=== PATIENT | female | born 1985 | race Caucasian/White ===

== ENCOUNTER → 2018-01-14 14:16 | Outpatient (CLI) | payer OTHER, SELFPAY ==
[2018-01-14 18:18] LABS: Chlamydia Trachomatis by PCR Negative (Negative); Neisserai gonorrhoeae by PCR Negative (Negative); Probe Check PASS; Sample Adequacy Control PASS; Specimen Processing Control PASS
[2018-01-17 12:58] LABS: HPV Reflexed? NOT INDICATED
== END ==
PROVIDERS: Visit Provider Obstetrics & Gynecology
DX: Z12.4 Encounter for screening for malignant neoplasm of cervix (principal); Z11.3 Encounter for screening for infections with a predominantly sexual mode of transmission
CPT/HCPCS: 87491; 87591; 88175; G0145

== ENCOUNTER → 2018-01-23 15:10 | Outpatient (CLI) | payer OTHER, SELFPAY ==
[2018-01-23 16:27] LABS: Color, Urine Yellow (Yellow); Glucose, Dipstick Normal (Normal); Ketone-Dipstick Negative (Negative); Leukocyte Esterase-Dipstick Negative /ul (Negative); Nitrite-Dipstick Negative (Negative); Occult Blood-Urine Negative /ul (Negative); Protein-Dipstick Negative (Negative); Urine Bilirubin Dipstick Negative (Negative); Urine Clarity Clear (Clear); Urine Urobilinogen Normal (Normal)
[2018-01-23 17:46] LABS: Absolute Lymphocyte Count 2.34 X10^3/ul (0.83-4.51); Absolute Neutrophil Count 6.7 X10^3/uL (2.0-7.7); Basophil# 0.02 X10^3/uL; Basophil% 0.2 % (0-1); Eosinophil# 0.14 X10^3/uL; Eosinophils% 1.4 % (0-5); Hematocrit 43.5 % (37-47); Hemoglobin 14.5 g/dl (12.0-15.0); Lymphocyte # 2.34 X10^3/ul (4.0); Lymphocyte % 24.1 % (19-41); Mean Corp Hgb Conc 33.3 g/gl (32-36); Mean Corpuscular Hgb 29.6 pg (27.0-32.0); Mean Corpuscular Volume 88.8 fL (81-99); Mean Platelet Vol. 12.2 fl (6.2-12.0); Monocyte# 0.46 X10^3/uL; Monocyte% 4.7 % (0-10); Neutrophil # 6.71 X10^3/uL (2.7-7.7); Neutrophil % 69.4 % (47-70); Platelet Count 184 K/mm3 (150-450); RBC Distribution Width CV 12.3 % (11.6-14.6); RBC Distribution Width SD 39.9 fl (35.1-43.9); White Blood Count 9.7 K/mm3 (4.4-11.0)
[2018-01-23 17:50] LABS: POSITIVE COUNT NO; POSITIVE DIFFERENTIAL NO; POSITIVE MORPHOLOGY NO
[2018-01-23 18:15] LABS: Thyroid Stim Hormone (TSH) 1.06 uIU/mL (0.358-3.74)
[2018-01-23 18:53] LABS: HIV - WCH Non-Reactive (Nonreactive)
[2018-01-25 01:05] LABS: Prenatal RPR NONREACTIVE (NONREACTIVE)
[2018-01-25 12:03] LABS: HEPATITIS B SURFACE AG Negative (Negative); Hep C Antibodies <0.1 s/co ratio (0.0-0.9)
== END ==
PROVIDERS: Visit Provider Obstetrics & Gynecology
DX: Z34.81 Encounter for supervision of other normal pregnancy, first trimester (principal)
CPT/HCPCS: 36415; 81002; 84443; 85025; 86703; 86762; 86803; 87340

== ENCOUNTER → 2018-04-17 15:09 | Outpatient (CLI) | payer OTHER, SELFPAY | PROVIDERS: Visit Provider Obstetrics & Gynecology | DX: N39.0 Urinary tract infection, site not specified (principal) | CPT/HCPCS: 87086 ==

== ENCOUNTER → 2018-06-12 13:34 | Outpatient (CLI) | payer OTHER, SELFPAY ==
[2018-06-12 15:43] LABS: Hematocrit 38.1 % (37-47); Hemoglobin 12.9 g/dl (12.0-15.0); Mean Corp Hgb Conc 33.9 g/gl (32-36); Mean Corpuscular Hgb 30.2 pg (27.0-32.0); Mean Corpuscular Volume 89.2 fL (81-99); Mean Platelet Vol. 11.4 fl (6.2-12.0); Platelet Count 150 K/mm3 (150-450); RBC Distribution Width SD 41.9 fl (35.1-43.9); Red Blood Count 4.27 M/mm3 (4.2-5.4); White Blood Count 9.9 K/mm3 (4.4-11.0)
[2018-06-12 15:57] LABS: Scan Indicated on CBC? Y/N NO
[2018-06-12 16:16] LABS: Glucose Challenge Gest 1H 50g 126 mg/dL (70-140)
== END ==
PROVIDERS: Visit Provider Obstetrics & Gynecology
DX: Z34.83 Encounter for supervision of other normal pregnancy, third trimester (principal)
CPT/HCPCS: 36415; 82950; 85027; 86850

== ENCOUNTER 2018-08-30 10:00 | Inpatient (IN) | payer OTHER, SELFPAY ==
[2018-08-27 13:20] VITALS: BMI 32.8
[2018-08-30] VITALS (19 sets, daily range): BP systolic 108–125; BP diastolic 56–75; PULSE 67–97; RESP 12–18; TEMP 36.2–37.2; O2SAT 95–100; BMI 32.5
[2018-08-30] MEDS: Lactated Ringers 1,000 ML 999 ML IV (10:30)
[2018-08-30 11:15] LABS: Absolute Lymphocyte Count 2.07 X10^3/ul (0.83-4.51); Absolute Neutrophil Count 8.9 X10^3/uL (2.0-7.7); Basophil# 0.02 X10^3/uL; Basophil% 0.2 % (0-1); Eosinophil# 0.29 X10^3/uL; Eosinophils% 2.4 % (0-5); Hematocrit 39.8 % (37-47); Hemoglobin 13.3 g/dl (12.0-15.0); Lymphocyte # 2.07 X10^3/ul (4.0); Lymphocyte % 17.3 % (19-41); Mean Corp Hgb Conc 33.4 g/gl (32-36); Mean Corpuscular Hgb 29.5 pg (27.0-32.0); Mean Corpuscular Volume 88.2 fL (81-99); Monocyte# 0.68 X10^3/uL; Monocyte% 5.7 % (0-10); Neutrophil # 8.87 X10^3/uL (2.7-7.7); Neutrophil % 74.1 % (47-70); POSITIVE COUNT NO; POSITIVE DIFFERENTIAL NO; POSITIVE MORPHOLOGY NO; Platelet Count 140 K/mm3 (150-450); RBC Distribution Width CV 13.2 % (11.6-14.6); RBC Distribution Width SD 42.3 fl (35.1-43.9); Red Blood Count 4.51 M/mm3 (4.2-5.4)
[2018-08-30] MEDS: Lactated Ringers 1,000 ML 150 ML IV (11:30)
[2018-08-30] MEDS: Sodium Citrate/Citric Acid 30 ML UDC PO (11:50)
[2018-08-30] MEDS: Cefazolin 2 GM in 0.9% Normal Saline 100 ML IV (12:00)
[2018-08-30 12:06] LABS: Partial Thromboplast Time 27.5 Seconds (24.1-36.2); Prothrombin Time (Protime)PT. 12.9 SECONDS (11.7-14.9)
[2018-08-30] MEDS: Oxytocin 30 units/NS 500 ml 30 UNITS/500 ML IV.SOLN 167 UNITS IV (12:21)
[2018-08-30] MEDS: Methylergonovine 0.2 MG/ML Ampul IM (12:26)
--- NOTE | 2018-08-30 13:06 | PCM.OPRPT ---
Report of Operation Date of Procedure: 08/30/18 Pre-Operative Diagnosis: Prior Section Post-Operative Diagnosis: Prior Section Surgery/Procedure Performed:: Repeat Low Transverse Cervical Section Description of Surgical Findings:: Viable male with Apgars of 8/9 and an occiput anterior presentation with clear amniotic fluid and normal three-vessel placenta. industrial mechanic: None industrial mechanic: Angela Brady Type of Anesthesia:: Spinal - with Duramorph Anesthesiologist: Anabel Munoz Specimen's removed: [facility]a to [facility] Drains: Michael to Straight Drain Estimated Blood Loss (mL): <500 cc Fluids Replaced: Crystalloid Description of Procedure: Surgeon: Addy Cummings MD, FACOG Indication: This is a 33-year-old who presents for her second at 39+ weeks gestation. care has otherwise been uneventful. The patient has been counseled regarding the risk and indications of this procedure including the possibility of bleeding infection and injury to surrounding structures such as bowel bladder. All questions were answered. Procedure: Patient was taken to the operating room where after spinal anesthesia was placed, the patient was prepped and draped in usual sterile fashion and a Michael catheter was placed. The abdomen was entered through the patient's prior Pfannenstiel incision and peritoneum was entered bluntly. After developing a bladder flap on the lower uterine segment a low transverse incision was made on the uterus and head was easily delivered onto the operative field the nose mouth and oropharynx were bulb suctioned. Subsequently a viable male infant was born with Apgars of 8/9. The was noted to cry move all extremities vigorously on the operative field. The umbilical cord was doubly clamped and ligated and infant handed to the nursery personnel who were present for the delivery. Placenta was delivered and noted to be 3 vessels and normal. arterial blood gases were collected. Uterus was exteriorized and remaining placental tissue was removed. The uterus was then closed in 2 layers first with running locked 0 Vicryl suture followed by a second imbricating layer with 0 Vicryl suture. 0 Vicryl suture was then used in a horizontal mattress interrupted fashion to affect final hemostasis of the uterine incision line. Normal fallopian tubes and ovaries were visualized and the uterus was returned to the pelvis. Hemostasis was noted and rectus abdominis muscles were reapproximated in the midline with interrupted Number 0 Vicryl suture in a horizontal mattress fashion. Fascia was closed with running Number 1 PDS Strata fix suture. Subcutaneous tissue was irrigated with copious amounts of saline solution and then closed with running 3-0 Vicryl suture. Skin was closed with 4-0 monocryl suture in a running subcuticular fashion. Steri strips, telfa, and tape were placed across the incision. The patient tolerated the procedure well and was taken to the recovery room in satisfactory condition. Sponge, needle, and instrument counts were all reportedly correct. EBL was less than 500 cc. Cefotan 2 gms IV was given prior to the procedure. Grafts/Implants Used: None - Complications None - Admit VTE Documentation VTE Present on Admission: Yes VTE Mechan Device Prophylaxis: SCD's VTE Pharm Prophylaxis ordered?: No Reason prophylaxis not ordered:: Treatment Not Indicated
--- NOTE | 2018-08-30 13:13 | DCINST_ITS ---
Discharge Diet: No Restrictions Discharge Activity: May not drive while taking narcotic pain medications., May Shower, May Take a Tub Bath May resume sexual activity in: 4-6 weeks Lifting Restrictions: 20 pounds Additional Activity Instructions:: Nothing in the vagina for 4-6 weeks. You may return to work/school in 6 weeks. Call your doctor if your incision/area has: Continuous Slow Oozing, Sudden Increased Bleeding, Increased Pain/ Swelling, Increased Redness, Foul Smelling Discharge Call your doctor if you observe: Fever of 101 or Higher, Inability to urinate, Inability to have a bowel movement, Using more than one pad per hour Additional Instructions: If you experience any of the following, contact your healthcare provider. * Bleeding that soaks a pad every hour for 2 hours * Unrelieved incision or abdominal pain * Swelling, redness, discharge or bleeding from your incision or episiotomy site * Your incision begins to separate * Problems urinating (including inability to urinate or burning while urinating). * Visual changes * Severe headache * Flu-like symptoms * Pain or redness in one of both of your breasts * Pain, warmth, tenderness or swelling in your legs, especially the calf area * Frequent nausea and vomiting * Symptoms of depression or anxiety If you experience any of the following, call 911 or go to the nearest Emergency Room. * Chest pain * Problems breathing * Seizure activity * Partial or complete paralysis of a body part, slurred speech, weakness or drooping of the face, or a sudden inability to walk or hold your balance Allergies/Adverse Reactions: Allergies amoxicillin Allergy (Verified 08/30/18 10:21) Hives morphine Allergy (Verified 08/30/18 10:21) Hives Medications to take at Discharge Vits [Prenatabs FA] 1 tablet PO DAILY 07/19/15 Mucinex PRN 08/27/18 Tums 1 tablet PO 4X/DAY PRN PRN 08/27/18 Tylenol 500 mg PO TID PRN PRN 08/27/18 Docusate Sodium [Colace] 100 mg PO BID PRN PRN #60 cap 08/30/18 traMADol [Ultram (G)] 50 mg PO Q6H PRN PRN 7 Days #20 tab 08/30/18 The following prescriptions were given: traMADol [Ultram (G)] 50 mg PO Q6H PRN PRN 7 Days #20 tab PRN Reason: Mod-Severe Pain (4-07/03) Docusate Sodium [Colace] 100 mg PO BID PRN PRN #60 cap PRN Reason: Constipation Follow-Up: Call to make an appointment with your doctor for an incision check in 1-2 weeks. You will also need a 6 week post- follow up appointment. Test results from this visit will be discussed in further detail at your follow- up appointment, if applicable. Please Follow Up With: Addy Cummings MD - [phone] When: Call to make an appointment for an incision check in 2 weeks. Primary Care Physician: Jhonathan Montgomery MD [Primary Care Provider] -
[2018-08-30] MEDS: proMETHazine 25 MG/ML Syringe 12.5 MG IV (15:47)
[2018-08-30] MEDS: Lactated Ringers 1,000 ML 100 ML IV (15:48)
[2018-08-30] MEDS: 0.9% Saline Lock 10 ML Syringe IV (15:48)
[2018-08-30] MEDS: Ketorolac 30 MG/ML Syringe IV (18:45)
[2018-08-31] VITALS (10 sets, daily range): BP systolic 92–118; BP diastolic 55–67; PULSE 79–105; RESP 16–18; TEMP 36.5–37.5; O2SAT 97–100
--- NOTE | 2018-08-31 | NURSING ---
Taking over pt care at this time.
[2018-08-31] MEDS: Ketorolac 30 MG/ML Syringe IV ×5 (00:04→23:38)
[2018-08-31] MEDS: Lactated Ringers 1,000 ML 100 ML IV (02:53)
[2018-08-31 04:16] LABS: Hematocrit 32.1 % (37-47); Hemoglobin 10.6 g/dl (12.0-15.0); Mean Corpuscular Hgb 29.9 pg (27.0-32.0); Mean Corpuscular Volume 90.7 fL (81-99); Mean Platelet Vol. 11.9 fl (6.2-12.0); Platelet Count 121 K/mm3 (150-450); RBC Distribution Width CV 13.3 % (11.6-14.6); Red Blood Count 3.54 M/mm3 (4.2-5.4); White Blood Count 11.3 K/mm3 (4.4-11.0)
[2018-08-31 04:17] LABS: Scan Indicated on CBC? Y/N NO
--- NOTE | 2018-08-31 10:12 | PN.OBGYN_ITS ---
Subjective: Pt without complaints. Tolerating diet well. Positive flatus. Minimal vaginal bleeding - Physical Exam Vital Signs Temp Pulse Resp BP Pulse Ox 98.0 F 79 16 96/55 L 98 08/31/18 08:00 08/31/18 08:00 08/31/18 08:00 08/31/18 08:00 08/31/18 06:00 Oxygen Flow Rate (L/min) 97 Oxygen Delivery Method Room Air Weight: 190 lb Body Mass Index (BMI) 32.5 Intake and Output for Last 24 Hours 08/29/18 08/30/18 08/31/18 23:59 23:59 23:59 Intake Total 3200 / 3200 1918 / 1918 Output Total 500 / 500 1400 / 1400 Balance 2700 / 2700 518 / 518 Laboratory Tests Past 24 Hrs 08/30/18 08/30/18 08/30/18 10:40 10:40 10:40 WBC 12.0 H RBC 4.51 Hgb 13.3 Hct 39.8 MCV 88.2 MCH 29.5 MCHC 33.4 RDW 13.2 RDW Differential 42.3 Plt Count 140 L MPV 12.0 Immature Gran % (Auto) 0.300 Neut % (Auto) 74.1 H Lymph % (Auto) 17.3 L Barbour % (Auto) 5.7 Eos % (Auto) 2.4 Baso % (Auto) 0.2 Absolute Neuts (auto) 8.9 H Absolute Lymphs (auto) 2.07 Total Counted Not Reportable PT Cancelled INR Cancelled APTT Cancelled Blood Type O NEGATIVE Antibody Screen NEGATIVE Screen Baby's Blood Type Baby's DIVYA 08/30/18 08/30/18 08/31/18 11:25 15:40 04:05 WBC 11.3 H RBC 3.54 L Hgb 10.6 L Hct 32.1 L MCV 90.7 MCH 29.9 MCHC 33.0 RDW 13.3 RDW Differential 43.0 Plt Count 121 L MPV 11.9 Immature Gran % (Auto) Neut % (Auto) Lymph % (Auto) Barbour % (Auto) Eos % (Auto) Baso % (Auto) Absolute Neuts (auto) Absolute Lymphs (auto) Total Counted PT 12.9 INR 1.0 APTT 27.5 Blood Type Antibody Screen Screen NEGATIVE Baby's Blood Type O POSITIVE Baby's DIVYA NEGATIVE Wound CDI. Good UOP. Hgb OK. Medical Necessity - Tobacco Use Smoking Status: Never smoker Assessment/Plan Doing well. Continue present care.
[2018-08-31] MEDS: 0.9% Saline Lock 10 ML Syringe IV ×2 (11:43→18:41)
[2018-08-31] MEDS: traMADol 50 MG Tablet PO ×2 (14:41→21:09)
[2018-09-01] MEDS: traMADol 50 MG Tablet PO ×2 (06:01→12:38)
[2018-09-01] MEDS: Ibuprofen 600 MG Tablet PO (06:10)
[2018-09-01 08:58] VITALS: BP 103/62; PULSE 87; RESP 16; TEMP 36.9; O2SAT 96
--- NOTE | 2018-09-01 09:32 | PCM.PN.OB ---
Subjective: Patient without complaints. Tolerating diet well. Minimal vaginal bleeding. With pain well controlled with Ultram. Positive flatus. - Physical Exam Vital Signs Temp Pulse Resp BP Pulse Ox 98.4 F 87 16 103/62 96 09/01/18 08:58 09/01/18 08:58 09/01/18 08:58 09/01/18 08:58 09/01/18 08:58 Oxygen Delivery Method Room Air Weight: 190 lb Body Mass Index (BMI) 32.5 Intake and Output for Last 24 Hours 08/30/18 08/31/18 09/01/18 23:59 23:59 23:59 Intake Total 3200 / 3200 1918 / 1918 Output Total 500 / 500 3400 / 3400 Balance 2700 / 2700 -1482 / -1482 Wound is clean, dry, intact. Good urine output. Medical Necessity - Tobacco Use Smoking Status: Never smoker Assessment/Plan Doing well postoperative day #2 status post repeat . Will release to home with routine instructions.
== END 2018-09-01 13:55 | disposition home or self-care (01) | DRG 788 ==
LOC: WP 10:05
PROVIDERS: Admitting Provider Obstetrics & Gynecology; Family Provider Family Medicine; PCP Family Medicine; Referring Provider Obstetrics & Gynecology; Visit Provider Obstetrics & Gynecology
PROC: 10D00Z1 Extraction of Products of Conception, Low, Open Approach (ICD-10-PCS; CPT 59514; principal; 2018-08-30 11:45)
DX: O34.211 Maternal care for low transverse scar from previous cesarean delivery (principal); Z37.0 Single live birth; Z3A.39 39 weeks gestation of pregnancy; Z23 Encounter for immunization; G43.909 Migraine, unspecified, not intractable, without status migrainosus; Z79.899 Other long term (current) drug therapy
CPT/HCPCS: 85025; 85027; 85461; 85610; 85730; 86850; 86900; 90384; 99218; J7120; 90686; A4216; G0378; J2405; J2790

== ENCOUNTER 2018-09-16 07:27 | Emergency (ER) | payer OTHER, SELFPAY ==
[2018-09-16 07:25] VITALS: BMI 32.5
[2018-09-16 07:28] VITALS: BP 124/78; PULSE 84; RESP 18; TEMP 36.6; O2SAT 100; BMI 28.3
[2018-09-16 07:44] VITALS: TEMP 36.6
--- NOTE | 2018-09-16 08:01 | US_ITS ---
STUDY: ULTRASOUND OF THE FEMALE PELVIS - COMPLETE REASON FOR EXAM: Female, 33 years old. Fever and chills. Pain and discharge 17 days status post section. Rule out retained products of conception. LMP: Unknown. TECHNIQUE: Transabdominal and Transvaginal TECHNICAL QUALITY: Adequate. COMPARISON: None. FINDINGS: The uterus is anteverted and is in a midline position. The uterus measures 11.7 x 8.8 x 7.3 cm. Open and fluid distended uterine cervix. The endometrium measures 25 mm in thickness, and is heterogeneous (striated) and fluid distended. There is no demonstrated myometrial mass. I.U.D. - The patient does not have an I.U.D. The right ovary is non-visualized. The left ovary is non-visualized. There is no fluid in the cul-de-sac. The visualized bladder is unremarkable . US/Pelvic (Non ) IMPRESSION: Abnormal heterogeneous fluid distended endometrium consistent with retained products of conception. Electronically Signed: Romario Hirsch MD at 11:03 EST , Service support ,
--- NOTE | 2018-09-16 08:02 | RAD_ITS ---
STUDY: X-RAY - RIGHT FOOT CLINICAL: Female, 33 years old. Pain on the top of the foot TECHNIQUE: 3 view(s) of the foot. COMPARISON: None. FINDINGS: Normal talus, calcaneus, and tarsal bones. There is os perineum. Normal visualized subtalar, talonavicular, calcaneocuboid, tarsal and tarsometatarsal articulations. Normal metatarsi. Normal metatarsophalangeal joint of the great toe. Normal tibial and fibular sesamoid bones. Normal interphalangeal joint of the great toe. Normal phalanges of the great toe. Normal second through fifth metatarsophalangeal joints. Normal interphalangeal joints and phalanges of the lesser toes. The soft tissue structures are unremarkable. There is no demonstrated fracture. RAD/Foot min 3 Views IMPRESSION: Normal x-ray examination of the foot. Electronically Signed: Romario Hirsch MD at 8:59 EST , Service support ,
[2018-09-16 08:29] LABS: Absolute Lymphocyte Count 2.23 X10^3/ul (0.83-4.51); Absolute Neutrophil Count 6.8 X10^3/uL (2.0-7.7); Basophil# 0.04 X10^3/uL; Basophil% 0.4 % (0-1); Eosinophil# 0.81 X10^3/uL; Eosinophils% 7.8 % (0-5); Hematocrit 42.1 % (37-47); Hemoglobin 13.4 g/dl (12.0-15.0); Lymphocyte # 2.23 X10^3/ul (4.0); Lymphocyte % 21.5 % (19-41); Mean Corp Hgb Conc 31.8 g/gl (32-36); Mean Corpuscular Hgb 28.3 pg (27.0-32.0); Mean Platelet Vol. 10.1 fl (6.2-12.0); Monocyte# 0.51 X10^3/uL; Monocyte% 4.9 % (0-10); Neutrophil # 6.77 X10^3/uL (2.7-7.7); Neutrophil % 65.2 % (47-70); POSITIVE COUNT NO; POSITIVE DIFFERENTIAL NO; POSITIVE MORPHOLOGY NO; Platelet Count 202 K/mm3 (150-450); RBC Distribution Width CV 12.8 % (11.6-14.6); RBC Distribution Width SD 41.3 fl (35.1-43.9); Red Blood Count 4.73 M/mm3 (4.2-5.4); White Blood Count 10.4 K/mm3 (4.4-11.0)
[2018-09-16 08:40] LABS: Anion Gap 6 (5-15); BUN 17 mg/dL (7-18); BUN/Creat Ratio 23.2 RATIO (10-20); Calcium,Total 8.3 mg/dL (8.5-10.1); Chloride 108 mmol/L (98-107); Creatinine, Serum 0.73 mg/dL (0.55-1.02); EST Glomerular Filtration Rate 96 mL/min (>60); Est Glom Filt Rate - Afr Amer 117 mL/min (>60); Estimated Creatinine Clearance 93.77 ml/min; Glucose 84 mg/dL (74-106); Sodium Level 141 mmol/L (136-145)
--- NOTE | 2018-09-16 09:03 | ED.DCSUM_ITS ---
- ER Visit Summary Date of Service: 09/16/18 Chief Complaint: Generalized illness and pelvic discharge History of Present Illness: The patient is a 33 F presenting for evaluation secondary to general illness and pelvic discharge. Patient has a history of having a section performed on 08/30. Patient reports that on 09/02 she started to have an onset of generalized illness. This was associated with fevers up to 100.5, generalized myalgias. Patient does endorse that there was a mild cough associated with this. She followed up with her FITNESS AND WELLNESS COORDINATOR she was noted to have some mild dermatitis around her incision, was placed on topicals, and had some improvement of that. However, the patient has had persistent symptoms associated with generalized myalgias, illness. Patient reports that she had a spontaneous onset of the lateral right foot pain not associated with any sort of injury, that was worse with walking and better with wearing a walking boot. Patient states that she recently developed a foul-smelling pelvic discharge. She denies any pelvic or abdominal pain associated with this. Review of systems otherwise negative. Physical Examination: Vital signs within normal limits. Well-nourished female no acute distress. No conjunctival pallor or scleral icterus, moist mucous membranes. Neck supple. Heart regular rate and rhythm no murmurs, lungs sounds clear to auscultation bilaterally. Abdomen soft nontender nondistended normal bowel sounds no masses. Incision appears clean dry and intact. exams that was hospice art therapist showed normal external genitalia no vaginal lesions and a normal cervix there was a foul-smelling brown discharge noted. Remainder of physical otherwise unremarkable. Test Results: CBC and chemistry are unremarkable, pelvic ultrasound shows evidence of possible retained products of conception Emergency Department Course and Treatment: Patient presented secondary to intermittent fevers and foul pelvic discharge. Workup as noted above showed potential retained products of conception. Patient currently does not have a fever, does not have a leukocytosis, and does not have any pelvic pain on palpation I do not believe that this has progressed to endometritis at this point. I had a discussion with Dr. Olmos about this, and she recommended the patient be placed on Flagyl, Augmentin. She recommended that the patient come in first thing to the office on Sunday and be n.p.o. prior to presentation for possible D&C that day. Patient was given signs and symptoms for which to return, she voiced understanding and her own words. Patient was discharged in stable condition. Disposition: Discharge Impression: 1. Retained products of conception This note was generated with [employer] dictation software. It may contain incorrect words, spelling, and punctuation that were not noted in review of the chart prior to signing ED Disposition - Plan for ED Patient: Disposition: Home or Assisted Living Chief Complaint: Complaint Diagnosis: Retained products of conception Instructions: Dilation and Curettage Prescriptions: Cephalexin [Keflex] 500 mg PO Q6 #40 cap Metronidazole [Flagyl] 500 mg PO Q8H #21 tab Referrals: Deborah Olmos MD [STAFF PHYSICIAN] - (10am on Sunday09/18/18)
[2018-09-16 09:18] LABS: Bacteria 0 SEEN /hpf (None Seen); Red Blood Cells-Urine 0 SEEN /hpf (0-5); Squamous Epithelial Cells - UA 0 SEEN /hpf (5-10)
[2018-09-16 09:20] LABS: Color, Urine Yellow (Yellow); Glucose, Dipstick Normal (Normal); Ketone-Dipstick Negative (Negative); Leukocyte Esterase-Dipstick 100 /ul (Negative); Nitrite-Dipstick Negative (Negative); Occult Blood-Urine 250 /ul (Negative); Protein-Dipstick Negative (Negative); Urine Bilirubin Dipstick Negative (Negative); Urine Clarity Clear (Clear); Urine Urobilinogen Normal (Normal)
[2018-09-16 09:25] LABS: Mucous, Urine RARE /hpf (<or=2+); White Blood Cells 5-10 SEEN /hpf (0-5)
[2018-09-16 11:39] VITALS: BP 121/67; PULSE 71; RESP 15; O2SAT 97
== END 2018-09-16 11:52 | disposition home or self-care (01) ==
PROVIDERS: Emergency Provider Emergency Medicine; Family Provider Family Medicine; PCP Family Medicine
DX: O72.2 Delayed and secondary postpartum hemorrhage (principal); R50.9 Fever, unspecified; R05 Cough; M79.10 Myalgia, unspecified site; M25.571 Pain in right ankle and joints of right foot; G43.909 Migraine, unspecified, not intractable, without status migrainosus
CPT/HCPCS: 73630; 76856; 80048; 81001; 85025; 87040; 87070; 87077; 87186; 87205; 87804; 99283; A4216

== ENCOUNTER 2018-09-18 11:33 | Day surgery (SDC) | payer OTHER, SELFPAY ==
--- NOTE | 2018-09-18 11:44 | PCM.HPOB.BLA ---
History and Physical Date of Admission: 09/18/18 Date of : 1985 HISTORY OF PRESENT ILLNESS: On 09/18/2018, Consuelo Calle, a 33 year old female 2 0 0 0 2, presented for: -- GynProblem-Estab Pt -- PT is a 33 yo female, G-2 P-2 here today for a problem visit. PT delivered via C Section on 08/30/2018. PT was seen in ER on Sunday. PT is to see [facility] today for possible surgery for POC. PT is NPO other than sips of water and a few bites of protein bar to take her ABX with. PT states when ibuprofen wears off she starts feeling bad again. dg as above. Presents for ER follow up from 09/16/18 for possible retained products of conception. She has uncomplicated section on 08/30/18. She subsequently had breast engorgement on POD#5 with low grade temperature and despite resolution of engorgement continued to have low grade temperatures and then started with muscle aches for almost 2 weeks. She has been taking Ibuprofen 800mg tid for relief of symptoms, but notes it returns if she does not take it. She presented to ER on 09/16/18 for worsening of ache, malodorous discharge and low grade fever. US there demonstrated heterogenous uterine contents concerning for retained POCs. She was started on Flagyl, Keflex for treatment and told to follow up today. Today she reports Tm 99.6 since starting antibiotics. She continues Ibuprofen. She denies back pain. She feels her lower abdomen is tightened from section. Denies urinary symptoms, diarrhea. + vaginal itching c/w prior yeast infection, she gets these related to antibiotics. Consuelo last ate at 1am. She continues pumping/. [facility] ALLERGIES: Morphine, Hives, Amoxicillin, Hives, Amoxicillin, Hives and/or rash, Morphine and Hives and/or rash MEDICATIONS HISTORY: Current medications prescribed by our practice are: 1. Synalar 0.025 % topical cream, Apply to affected area bid Patient is also takin. Vitamin tablet, one tablet daily 2. Flagyl 375 mg capsule 3. Keflex 500 mg capsule REVIEW OF SYSTEMS: GENERAL - periodic fever SKIN - Denies skin changes EYES - Denies visual changes EARS - Denies difficulty hearing NOSE - Denies nasal congestion or bleeding MOUTH - Denies sore throat or difficulty swallowing NECK - Denies pain or swelling RESPIRATORY - Denies shortness of breath or wheezing CARDIOVASCULAR - Denies palpitations or chest pain GASTROINTESTINAL - Denies nausea, vomiting, diarrhea, constipation GENITOURINARY - Denies dysuria, frequency of urination, incontinence of urine MUSCULOSKELETAL - back pain and muscle aches NEUROLOGICAL - Denies localized numbness or weakness PSYCHIATRIC - Denies depression or anxiety ENDOCRINE - Denies heat or cold intolerance, weight loss or gain HEMATO-IMMUNOLOGIC - Denies excesive bleeding with cuts PAST HISTORY: Breast/Ovarian/Colon Cancers - Denies Infections - Chicken pox Illnesses - none Accidents - no injuries of consequence History of Abnormal PAPS - Denies Hospitalizations - colitis - in [facility] [place] SURGICAL HISTORY: 1. [facility], 2002 2. [facility], 2010 3. 08/30/2018 Addy Cummings M.D. 4. 10/27/2015 Addy Cummings M.D. PAST PREGNANCIES: Total Pregnancies - 2; Full Term Pregnancies - 2; Premature - 0; Abortions, Induced - 0; Abortions, Spontaneous - 0; Ectopics - 0; Multiple Births - 0; Living Children - 2 PHYSICAL EXAMINATION BP- 110/76 Sitting, Right arm, regular cuff Weight- 163.00 lbs Height- 64.50 inch BMI:27.60 CONSTITUTIONAL - NAD, well nourished, and well developed SKIN - No rash, lesions, or ulcers HEENT - normocephalic, atraumatic, sclerae anicteric NECK - No nodes, no nuchal rigidity and thyroid normal size and texture LYMPH NODES - Palpation of lymph nodes in neck and groins within normal limits LUNGS - CTA x2 without wheezes, crackles or rales CARDIAC - Regular rate and rhythm without rubs, murmurs, or gallops BREAST - No tenderness or skin changes or erythema, prior left axillary lymphadenopathy resolved with palpable 1cm node in right axilla ABDOMEN - Without hepatosplenomegaly, distention, masses, rebound, or guarding; normal bowel sounds; no hernias; incision with 2mm opening with serous drainage without erythma, purulence or tenderness EXTREMITIES - No edema or calf tenderness NEUROLOGICAL - normal gait, normal balance, normal motor PSYCHIATRIC - A and O to time, place, person, mood and affect EXTERNAL GENITALIA - normal appearing external genitalia UTERUS - nontender, approximately 10w size ADNEXAE - nontender, no palpable masses CERVIX - no cervical motion tenderness, not dilated ASSESSMENT: 1. Other Abnormal Products Of Conception PLAN BY DIAGNOSIS: 1. Other Abnormal Products Of Conception Exam overall wnl apart from incisional separation US images reviewed Advised suction dilation and curettage to evacuate hematoma vs. retained POCs - r/b/i/a reviewed, discussed misoprostol as an alternative. Following discussion, pt agrees to proceed - consents signed Reviewed anticipated hospital course and recovery Prior CBC from 09/16/18 - needs T Pt and spouse given opportunity to ask questions and questions answered to their satisfaction. May continue , reviewed monitoring infant for drowsiness Blood transfusion acceptable
--- NOTE | 2018-09-18 11:48 | HP.PCM_ITS ---
History and Physical Date of Admission: 09/18/18 Date of : 1985 HISTORY OF PRESENT ILLNESS: On 09/18/2018, Consuelo Calle, a 33 year old female 2 0 0 0 2, presented for: -- GynProblem-Estab Pt -- PT is a 33 yo female, G-2 P-2 here today for a problem visit. PT delivered via C Section on 08/30/2018. PT was seen in ER on Sunday. PT is to see [facility] today for possible surgery for POC. PT is NPO other than sips of water and a few bites of protein bar to take her ABX with. PT states when ibuprofen wears off she s tarts feeling bad again. dg as above. Presents for ER follow up from 09/16/18 for possible retained products of conception. She has uncomplicated section on 08/30/18. She subsequently had breast engorgement on POD#5 with low grade temperature and despite resolution of engorgement continued to have low grade temperatures and then started with muscle aches for almost 2 weeks. She has been taking Ibuprofen 800mg tid for relief of symptoms, but notes it returns if she does not take it. She presented to ER on 09/16/18 for worsening of ache, malodorous discharge and low grade fever. US there demonstrated heterogenous uterine contents concerning for retained POCs. She was started on Flagyl, Keflex for treatment and told to follow up today. Today she reports Tm 99.6 since starting antibiotics. She continues Ibuprofen. She denies back pain. She feels her lower abdomen is tightened from section. Denies urinary symptoms, diarrhea. + vaginal itching c/w prior yeast infection, she gets these related to antibiotics. Consuelo last ate at 1am. She continues pumping/. [facility] ALLERGIES: Morphine, Hives, Amoxicillin, Hives, Amoxicillin, Hives and/or rash, Morphine and Hives and/or rash MEDICATIONS HISTORY: Current medications prescribed by our practice are: 1. Synalar 0.025 % topical cream, Apply to affected area bid Patient is also takin. Vitamin tablet, one tablet daily 2. Flagyl 375 mg capsule 3. Keflex 500 mg capsule REVIEW OF SYSTEMS: GENERAL - periodic fever SKIN - Denies skin changes EYES - Denies visual changes EARS - Denies difficulty hearing NOSE - Denies nasal congestion or bleeding MOUTH - Denies sore throat or difficulty swallowing NECK - Denies pain or swelling RESPIRATORY - Denies shortness of breath or wheezing CARDIOVASCULAR - Denies palpitations or chest pain GASTROINTESTINAL - Denies nausea, vomiting, diarrhea, constipation GENITOURINARY - Denies dysuria, frequency of urination, incontinence of urine MUSCULOSKELETAL - back pain and muscle aches NEUROLOGICAL - Denies localized numbness or weakness PSYCHIATRIC - Denies depression or anxiety ENDOCRINE - Denies heat or cold intolerance, weight loss or gain HEMATO-IMMUNOLOGIC - Denies excesive bleeding with cuts PAST HISTORY: Breast/Ovarian/Colon Cancers - Denies Infections - Chicken pox Illnesses - none Accidents - no injuries of consequence History of Abnormal PAPS - Denies Hospitalizations - colitis - in [facility] SURGICAL HISTORY: 1. T and A, 2002 2. [place] [facility], 2010 3. 08/30/2018 Addy Cummings M.D. 4. 10/27/2015 Addy Cummings M.D. PAST PREGNANCIES: Total Pregnancies - 2; Full Term Pregnancies - 2; Premature - 0; Abortions, Induced - 0; Abortions, Spontaneous - 0; Ectopics - 0; Multiple Births - 0; Living Children - 2 PHYSICAL EXAMINATION BP- 110/76 Sitting, Right arm, regular cuff Weight- 163.00 lbs Height- 64.50 inch BMI:27.60 CONSTITUTIONAL - NAD, well nourished, and well developed SKIN - No rash, lesions, or ulcers HEENT - normocephalic, atraumatic, sclerae anicteric NECK - No nodes, no nuchal rigidity and thyroid normal size and texture LYMPH NODES - Palpation of lymph nodes in neck and groins within normal limits LUNGS - CTA x2 without wheezes, crackles or rales CARDIAC - Regular rate and rhythm without rubs, murmurs, or gallops BREAST - No tenderness or skin changes or erythema, prior left axillary lymphadenopathy resolved with palpable 1cm node in right axilla ABDOMEN - Without hepatosplenomegaly, distention, masses, rebound, or guarding; normal bowel sounds; no hernias; incision with 2mm opening with serous drainage without erythma, purulence or tenderness EXTREMITIES - No edema or calf tenderness NEUROLOGICAL - normal gait, normal balance, normal motor PSYCHIATRIC - A and O to time, place, person, mood and affect EXTERNAL GENITALIA - normal appearing external genitalia UTERUS - nontender, approximately 10w size ADNEXAE - nontender, no palpable masses CERVIX - no cervical motion tenderness, not dilated ASSESSMENT: 1. Other Abnormal Products Of Conception PLAN BY DIAGNOSIS: 1. Other Abnormal Products Of Conception Exam overall wnl apart from incisional separation US images reviewed Advised suction dilation and curettage to evacuate hematoma vs. retained POCs - r/b/i/a reviewed, discussed misoprostol as an alternative. Following discussion, pt agrees to proceed - consents signed Reviewed anticipated hospital course and recovery Prior CBC from 09/16/18 - needs T Pt and spouse given opportunity to ask questions and questions answered to their satisfaction. May continue , reviewed monitoring infant for drowsiness Blood transfusion acceptable
[2018-09-18 11:58] VITALS: BP 110/82; PULSE 70; RESP 16; TEMP 37.3; O2SAT 100; BMI 28.0
--- NOTE | 2018-09-18 12:00 | POC_PTH ---
PATIENT: SANDRA DURAN LOC: [facility] U#:[id number] AGE/SX: 33/F ROOM: RE09/18/[address]: Dr. Deborah Mo MD : 1985 BED: DIS: 09/18/2018 SPEC #: [id number] RECD: 09/18/18 16:18 STATUS: AMY SHELIA #: [id number] TOYA: 09/18/18 12:[address]: Deborah White DEPT: SURGICAL PATHOLOGY RECD BY: Urban Cohn ENTERED: 09/19/18 11:00 SP TYPE: PROD CONC OTHR DR: Dr. Jhonathan Montgomery MD Tissues: Product of conception, NOS Procedures: Surgery Specimen Level IV HEADER OPERATION: Dilation and curettage, suction PRE-OP DIAGNOSIS: Retained products of conception TISSUE SUBMITTED: Retained products of conception MICROSCOPIC DIAGNOSIS Retained products of conception, curettage: Chorionic villi, decidualized stroma and trophoblastic cells with autolytic changes. See comment. AM:karina 09/20/18 COMMENT The specimen is consistent with retained products of conception. Clinical correlation is suggested. MICROSCOPIC DESCRIPTION Slides are reviewed. GROSS DESCRIPTION Received in fixative is one container labeled with the patient's name and designated retained products of conception. The specimen consists of multiple irregular fragments of hemorrhagic red-kunz soft tissue that in aggregate measure 8 x 7 x 1 cm. parts are not grossly recognized. Tongue And Groove Machine Setter portions are submitted in two cassettes. / AM:karina 09/19/18 TC:5 CPT: 48694
[2018-09-18 12:22] LABS: Internal QC Validated? YES +Cl - CLEAR BKGD; Pregnancy, Urine Negative Negative
--- NOTE | 2018-09-18 13:09 | DCINST_ITS ---
Discharge Diet: No Restrictions Discharge Activity: Return to Normal Activity, May not drive while taking narcotic pain medications., May Shower, - - No tub bath, Do not put anything in the vagina, No driving for 24 hours, do not operate heavy machinery for 24 hours May resume sexual activity in: - - 2-4 weeks Call your doctor if you observe: Fever of 101 or Higher, Inability to urinate, Inability to have a bowel movement, Using more than one pad per hour, Shortness of breath, Chest pain, Uncontrolled pain Allergies/Adverse Reactions: Allergies amoxicillin Allergy (Verified 09/16/18 07:30) Hives morphine Allergy (Verified 09/16/18 07:30) Hives Medications to take at Discharge Vits [Prenatabs FA] 1 tablet PO DAILY 07/19/15 Mucinex PRN 08/27/18 Tums 1 tablet PO 4X/DAY PRN PRN 08/27/18 Tylenol 500 mg PO TID PRN PRN 08/27/18 Docusate Sodium [Colace] 100 mg PO BID PRN PRN #60 cap 08/30/18 Cephalexin [Keflex] 500 mg PO Q6 #40 cap 09/16/18 Metronidazole [Flagyl] 500 mg PO Q8H #21 tab 09/16/18 Ibuprofen 400 mg PO Q6H PRN 09/18/18 Primary Care Physician: Jhonathan Montgomery MD [Primary Care Provider] - Test Results: Test results from this visit will be discussed in further detail at your follow- up appointment, if applicable. Please Follow Up With: Addy Cummings MD When: 2-4 weeks
--- NOTE | 2018-09-18 13:10 | PCM.OPRPT ---
Problem List (1) Retained products of conception after delivery without hemorrhage Status: Acute Report of Operation Date of Procedure: 09/18/18 Pre-Operative Diagnosis: Retained products of conception after delivery Post-Operative Diagnosis: Retained products of conception after delivery Surgery/Procedure Performed:: Suction dilation and curettage Description of Surgical Findings:: Retained products of conception Type of Anesthesia:: Local MAC Anesthesiologist: Jhonathan Hsieh Specimen's removed: products of conception and clot Estimated Blood Loss (mL): 25ml Fluids Replaced: 1100 ml Description of Procedure: Indications: Ms. Calle is a 33-year-old para 3003 approximately 2 weeks status post a repeat section with retained products of conception, cannot rule out hematometra. She was advised to proceed with suction dilatation and curettage. Risks, benefits, indications, and alternatives were reviewed at length. Consents were signed. The patient desired to proceed. Procedure: The patient was taken to the operating room and sinus performed. She is placed on dorsal supine position and induced under MAC. She was then repositioned to dorsal lithotomy. The perineum was prepped and draped in sterile fashion. She is placed into high lithotomy. A bivalve speculum was placed into the vagina and cervix visualized and grasped the anterior cervical lip using a single-tooth tenaculum. Total of 20 cc of 1% lidocaine without epinephrine was placed for paracervical block. The cervix was subsequently dilated and suction curettage performed using a 10 mm curved curette. Suction curettage was alternated with sharp curettage and there was retrieval products of conception as well as hematoma. The procedure was complete the tenaculum was removed from the cervix and there was excellent hemostasis. The macula was removed from the vagina and the patient was placed into dorsal supine position, awakened and transferred to the recovery room without complication. Sponge counts were correct x2. The patient tolerated the procedure well. - Complications None - Admit VTE Documentation VTE Present on Admission: No VTE Mechan Device Prophylaxis: SCD's VTE Pharm Prophylaxis ordered?: No
[2018-09-18 13:15] VITALS: BP 103/67; BP 110/82; PULSE 71; RESP 16; TEMP 37; O2SAT 99
[2018-09-18 13:20] VITALS: BP 101/76; BP 110/82; PULSE 70; RESP 16; O2SAT 100
[2018-09-18 13:25] VITALS: BP 110/82; BP 116/81; PULSE 70; RESP 16; O2SAT 99
[2018-09-18 13:33] VITALS: BP 104/75; BP 110/82; PULSE 68; RESP 16; TEMP 36.6; O2SAT 100
== END 2018-09-18 14:33 | disposition home or self-care (01) ==
LOC: SDC 11:34 → AC 11:35
PROVIDERS: Family Provider Family Medicine; PCP Family Medicine; Referring Provider Obstetrics & Gynecology; Visit Provider Obstetrics & Gynecology
PROC: (CPT 59160; principal; 2018-09-18 11:45)
DX: O73.1 Retained portions of placenta and membranes, without hemorrhage (principal); Z3A.00 Weeks of gestation of pregnancy not specified
CPT/HCPCS: 59160; 81025; 86850; 86870; 86900; 88305; J7120

== ENCOUNTER → 2019-05-16 | Outpatient (CLI) | payer OTHER, SELFPAY | END | disposition home or self-care (01) | LOC: MFPLAB 12:11 | PROVIDERS: Family Provider Family Medicine; PCP Family Medicine; Referring Provider Family Medicine; Visit Provider Family Medicine | DX: K52.9 Noninfective gastroenteritis and colitis, unspecified (principal) | CPT/HCPCS: 87177; 87209; 87506 ==

== ENCOUNTER → 2020-04-08 | Outpatient (CLI) | payer OTHER, SELFPAY ==
[2020-04-14 19:59] LABS: HPV Reflexed? NOT INDICATED
== END | disposition home or self-care (01) ==
LOC: LABSPEC 04-09 09:39
PROVIDERS: PCP Family Medicine; Visit Provider Obstetrics & Gynecology
DX: Z12.4 Encounter for screening for malignant neoplasm of cervix (principal)
CPT/HCPCS: 88175; G0145

== ENCOUNTER → 2020-09-10 11:14 | Outpatient (CLI) | payer OTHER, SELFPAY ==
[2020-08-10 08:03] VITALS: BMI 27.3
--- NOTE | 2020-09-10 11:25 | RAD_ITS ---
STUDY: X-RAY - ACUTE ABDOMINAL SERIES REASON FOR EXAM: Female, 35 years old. Abdominal pain, diarrhea, nausea and vomiting since 2 am. hx of 2 c-sections. pt states that she also has a hiatal hernia. TECHNIQUE: Single view of the chest. Supine, and erect view(s) of the abdomen were obtained. COMPARISON: None. FINDINGS: The lungs are clear and expanded. Normal size heart. Normal mediastinum and annetta. Normal visualized pulmonary arteries. Normal visualized aortic arch and descending thoracic aorta. There is a non-specific bowel gas pattern. The soft tissue structures of the abdomen and pelvis are unremarkable. Normal visualized osseous structures. RAD/Acute Abdomen Inc Chest IMPRESSION: Normal x-ray examination of the chest, abdomen, and pelvis. Electronically Signed: Clifton Mazariegos, at 12:45 EST , Service support ,
[2020-09-10 12:12] LABS: Absolute Lymphocyte Count 1.41 X10^3/uL (0.83-4.51); Absolute Neutrophil Count 10.9 X10^3/uL (2.0-7.7); Basophil# 0.04 X10^3/uL; Basophil% 0.3 % (0-1); Eosinophil# 0.01 X10^3/uL; Eosinophils% 0.1 % (0-5); Hematocrit 46.1 % (37-47); Hemoglobin 15.4 g/dL (12.0-15.0); Lymphocyte # 1.41 X10^3/ul (4.0); Lymphocyte % 11.1 % (19-41); Mean Corp Hgb Conc 33.4 g/dL (32-36); Mean Corpuscular Hgb 29.3 pg (27.0-32.0); Mean Corpuscular Volume 87.8 fL (81-99); Mean Platelet Vol. 12.1 fl (6.2-12.0); Monocyte# 0.28 X10^3/uL; Monocyte% 2.2 % (0-10); NRBC Flagged by Analyzer 0 % (0-5); Neutrophil # 10.86 X10^3/uL (2.7-7.7); Neutrophil % 85.9 % (47-70); Platelet Count 237 K/mm3 (150-450); RBC Distribution Width CV 11.9 % (11.6-14.6); RBC Distribution Width SD 38.4 fl (35.1-43.9); Red Blood Count 5.25 M/mm3 (4.2-5.4); White Blood Count 12.7 K/mm3 (4.4-11.0)
[2020-09-10 12:34] LABS: AST(SGOT) 13 U/L (15-37); Alanine Aminotransfer ALT/SGPT 19 U/L (13-56); Albumin, Serum 3.9 g/dL (3.2-5.0); Alkaline Phosphatase 84 U/L (45-117); Anion Gap 6 (5-15); BUN 13 mg/dL (7-18); BUN/Creat Ratio 19.6 RATIO (10-20); Chloride 108 mmol/L (98-107); Creatinine, Serum 0.66 mg/dL (0.55-1.02); EST Glomerular Filtration Rate 107 mL/min (>60); Est Glom Filt Rate - Afr Amer 129 mL/min (>60); Globulin 3.8 g/dL (2.2-4.2); Glucose 99 mg/dL (74-106); Potassium 3.9 mmol/L (3.5-5.1); Protein, Total 7.7 g/dL (6.4-8.2); Sodium Level 138 mmol/L (136-145)
[2020-09-12 20:07] LABS: Beef <0.10 kU/L (Class 0); Corn <0.10 kU/L (Class 0); Egg, Whole <0.10 kU/L (Class 0); Milk (Cow) <0.10 kU/L (Class 0); Peanut <0.10 kU/L (Class 0); Pork <0.10 kU/L (Class 0); Soybean <0.10 kU/L (Class 0); Wheat <0.10 kU/L (Class 0)
[2020-09-13 16:08] LABS: Endomysial Antibody IgA Negative (Negative)
[2020-09-13 17:17] LABS: CRP 6.77 mg/L (0.0-3.0)
[2020-09-13 20:55] LABS: Deamidated Gliadin IgA 9 units (0-19); Deamidated Gliadin IgG 3 units (0-19); Immunoglobulin A 208 mg/dL (87-352); t-Transglutaminase IgA <2 U/mL (0-3)
[2020-09-13 21:01] LABS: Chocolate <0.10 kU/L (Class 0)
== END ==
PROVIDERS: PCP Family Medicine; Referring Provider Family Medicine; Visit Provider Family Medicine
DX: R10.9 Unspecified abdominal pain (principal); R19.7 Diarrhea, unspecified
CPT/HCPCS: 36415; 74022; 80053; 82784; 83516; 85025; 86003; 86005; 86140; 86255

== ENCOUNTER → 2021-09-24 09:45 | Outpatient (CLI) | payer BC, SELFPAY ==
--- NOTE | 2021-09-24 10:05 | RAD_ITS ---
STUDY: X-RAY CHEST REASON FOR EXAM: Female, 36 years old. SOB, CHEST TIGHTNESS TECHNIQUE: PA and lateral views of the chest. COMPARISON: 09/10/2020 FINDINGS: The lungs are clear and expanded. There is no demonstrated pleural abnormality. Normal size heart. Normal mediastinum and annetta. Normal visualized pulmonary arteries. Normal visualized aortic arch and descending thoracic aorta. Normal visualized thoracic spine. Normal visualized ribs, clavicles, and shoulders. There is no demonstrated abnormality of the visualized soft tissue structures of the upper abdomen. RAD/Chest PA and Lateral IMPRESSION: Normal x-ray examination of the chest. Electronically Signed: Urban Miller MD at 10:30 EST Tel , Service support ,
== END ==
PROVIDERS: PCP Family Medicine
DX: R06.02 Shortness of breath (principal); R07.89 Other chest pain
CPT/HCPCS: 71046

== ENCOUNTER 2021-10-25 09:09 | Outpatient (CLI) | payer BC, SELFPAY ==
[2021-10-28 14:09] LABS: HPV APTIMA, High Risk Negative (Negative)
== END 2021-10-25 23:59 | disposition short-term general hospital (02) ==
LOC: LABSPEC 10-26 09:11
PROVIDERS: PCP Family Medicine; Visit Provider Nurse Practitioner Women's Health
DX: Z12.4 Encounter for screening for malignant neoplasm of cervix (principal)
CPT/HCPCS: 87624; 88175; G0145

== ENCOUNTER → 2022-07-19 | Outpatient (CLI) | payer BC, SELFPAY ==
--- NOTE | 2022-07-19 12:50 | RAD_ITS ---
EXAM: XR CHEST, 2 VIEWS CLINICAL INDICATION: atypical chest pain TECHNIQUE: Frontal and lateral views of the chest. This report was created using [employer] report generation technology. COMPARISON: XR Chest dated september 24 2021 FINDINGS: LUNGS AND PLEURAL SPACES: Normal. No consolidation or edema. No pneumothorax. No effusion. HEART: Normal heart size. MEDIASTINUM: No mediastinal or hilar mass. BONES/JOINTS: No acute abnormality. SOFT TISSUES: Normal. RAD/Chest PA and Lateral IMPRESSION: No acute cardiopulmonary abnormality. No interval change. Electronically Signed: Braden Geller MD at 14:55 EDT ,
== END | disposition home or self-care (01) ==
LOC: MTRAD 14:14
PROVIDERS: PCP Family Medicine; Referring Provider Family Medicine; Visit Provider Family Medicine
DX: R07.89 Other chest pain (principal)
CPT/HCPCS: 71046

== ENCOUNTER → 2022-10-24 | Outpatient (CLI) | payer BC, SELFPAY ==
[2022-10-26 22:06] LABS: Chlamydia By Nucleic Acid AMP Negative (Negative)
[2022-10-26 22:37] LABS: Gonococcus By Nucleic Acid AMP Negative (Negative)
== END | disposition home or self-care (01) ==
LOC: LABSPEC 16:39
PROVIDERS: PCP Family Medicine; Visit Provider Nurse Practitioner Women's Health
DX: N89.8 Other specified noninflammatory disorders of vagina (principal)
CPT/HCPCS: 87070; 87205; 87491; 87591

== ENCOUNTER → 2023-07-23 | Outpatient (CLI) | payer BC, SELFPAY ==
[2023-07-23 10:00] LABS: Hematocrit 42.8 % (37-47); Hemoglobin 13.8 g/dL (12.0-15.0); Mean Corp Hgb Conc 32.2 g/dL (32-36); Mean Corpuscular Hgb 29.7 pg (27.0-32.0); Mean Platelet Vol. 12.6 fl (6.2-12.0); Platelet Count 152 K/mm3 (150-450); RBC Distribution Width SD 40.5 fl (35.1-43.9); Red Blood Count 4.65 M/mm3 (4.2-5.4); White Blood Count 5.9 K/mm3 (4.4-11.0)
[2023-07-23 10:22] LABS: AST(SGOT) 6 U/L (15-37); Alanine Aminotransfer ALT/SGPT 19 U/L (13-56); Albumin, Serum 3.5 g/dL (3.2-5.0); Alkaline Phosphatase 59 U/L (45-117); Anion Gap 2 (5-15); BUN 13 mg/dL (7-18); BUN/Creat Ratio 19.8 RATIO (10-20); Calcium,Total 8.3 mg/dL (8.5-10.1); Chloride 111 mmol/L (98-107); Cholesterol 148 mg/dL (200); Creatinine, Serum 0.66 mg/dL (0.55-1.02); EST Glomerular Filtration Rate 106 mL/min (>60); Est Glom Filt Rate - Afr Amer 129 mL/min (>60); Free T3 2.5 pg/mL (2.18-3.98); Globulin 3.5 g/dL (2.2-4.2); Glucose 86 mg/dL (74-106); High Density Lipoprotein 53 mg/dL; Potassium 3.9 mmol/L (3.5-5.1); Sodium Level 137 mmol/L (136-145); T4 Free Direct 0.79 ng/dL (0.76-1.46); Thyroid Stim Hormone (TSH) 1.41 uIU/mL (0.358-3.74); Triglycerides 54 mg/dL; Very Low Density Lipoprotein 11 mg/dL (5-40)
== END | disposition home or self-care (01) ==
LOC: MFPLAB 08:44
PROVIDERS: Nurse Practitioner Family; PCP Family Medicine; Visit Provider Family Medicine
DX: E04.9 Nontoxic goiter, unspecified (principal); Z13.1 Encounter for screening for diabetes mellitus; Z13.220 Encounter for screening for lipoid disorders
CPT/HCPCS: 36415; 80053; 80061; 84439; 84443; 84481; 85027

== ENCOUNTER 2023-09-09 18:48 | Emergency (ER) | payer BC, SELFPAY ==
[2023-09-09 18:48] VITALS: BP 123/103; PULSE 68; RESP 16; TEMP 36.7; O2SAT 98; BMI 21.5
[2023-09-09 20:00] LABS: Bacteria 0 SEEN /hpf (None Seen); Mucous, Urine 0 SEEN /hpf (<or=2+); Red Blood Cells-Urine 0 SEEN /hpf (0-5); Squamous Epithelial Cells - UA 0 SEEN /hpf (5-10); White Blood Cells 0 SEEN /hpf (0-5)
[2023-09-09 20:02] LABS: Color, Urine Yellow (Yellow); Glucose, Dipstick Normal (Normal); Ketone-Dipstick 15 mg/dl (Negative); Leukocyte Esterase-Dipstick Negative /ul (Negative); Nitrite-Dipstick Negative (Negative); Occult Blood-Urine Negative /ul (Negative); Protein-Dipstick Negative (Negative); Urine Bilirubin Dipstick Negative (Negative); Urine Clarity Sl. Cloudy (Clear); Urine Urobilinogen Normal (Normal)
[2023-09-09 20:39] LABS: Absolute Lymphocyte Count 1.14 X10^3/uL (0.83-4.51); Absolute Neutrophil Count 7.7 X10^3/uL (2.0-7.7); Basophil# 0.02 X10^3/uL; Basophil% 0.2 % (0-1); Hematocrit 45.5 % (37-47); Lymphocyte # 1.14 X10^3/ul (0.83-4.51); Lymphocyte % 12.7 % (19-41); Mean Corpuscular Hgb 29.5 pg (27.0-32.0); Mean Corpuscular Volume 89.6 fL (81-99); Mean Platelet Vol. 11.7 fl (6.2-12.0); Monocyte% 1.1 % (0-10); NRBC Flagged by Analyzer 0 % (0-5); Neutrophil # 7.66 X10^3/uL (2.7-7.7); Neutrophil % 85.6 % (47-70); Platelet Count 185 K/mm3 (150-450); RBC Distribution Width SD 39.5 fl (35.1-43.9); Red Blood Count 5.08 M/mm3 (4.2-5.4)
[2023-09-09 20:50] LABS: Internal QC Validated? YES +Cl - CLEAR BKGD; Pregnancy, Serum, hCG Quali. NEGATIVE Negative
[2023-09-09 21:06] LABS: ALB/GLOB Ratio 1.1 RATIO (0.9-2.4); AST(SGOT) 10 U/L (15-37); Alanine Aminotransfer ALT/SGPT 18 U/L (13-56); Albumin, Serum 3.9 g/dL (3.2-5.0); Alkaline Phosphatase 62 U/L (45-117); Anion Gap 6 (5-15); BUN 12 mg/dL (7-18); BUN/Creat Ratio 13.8 RATIO (10-20); Calcium,Total 9.5 mg/dL (8.5-10.1); Chloride 104 mmol/L (98-107); Creatinine, Serum 0.87 mg/dL (0.55-1.02); EST Glomerular Filtration Rate 77 mL/min (>60); Est Glom Filt Rate - Afr Amer 93 mL/min (>60); Estimated Creatinine Clearance 74.97 ml/min; Globulin 3.7 g/dL (2.2-4.2); Glucose 112 mg/dL (74-106); Potassium 4.1 mmol/L (3.5-5.1); Protein, Total 7.6 g/dL (6.4-8.2); Sodium Level 138 mmol/L (136-145)
[2023-09-09] MEDS: Mag Hydrox/Al Hydrox/Simeth 30 ML UDC PO (22:23)
[2023-09-09] MEDS: Ondansetron 4 MG/2 ML Vial IV (22:24)
[2023-09-09] MEDS: Ketorolac 15 MG/ML Vial IV (22:25)
[2023-09-09] MEDS: Dicyclomine 20 MG/2 ML Vial IM (22:27)
--- NOTE | 2023-09-09 23:53 | ED.VIS.GI ---
HPI HPI - GI History of Present Illness Chief Complaint: Abd Pain Narrative Narrative: 38-year-old female presenting with abdominal pain. She describes it as cramping and aching. She points to her epigastrium and her mid umbilical region. Patient states this started about 24 hours ago. Patient reports she does have lactose intolerance and did eat some black eyes and is concerned this may have caused her symptoms but she is also on prednisone that was prescribed by the urgent care for an extended cough that she had for 2 weeks. Patient denies any history of asthma or wheezing. No fevers or chills. Patient does have nausea. She states she has not had significant diarrhea but has had some between bowel movements. Patient does report a history of IBS as well. [facility] Medical History IBS (irritable bowel syndrome) Migraines Home Medications [id number]-[id number] 250 mg-250 mg-65 mg tablet (Excedrin Extra Strength) 1 tab PO ONCE 05/18/20 [History Last Taken Unknown] multivitamin 1 tab PO DAILY 05/18/20 [History Last Taken Unknown] Saccharomyces boulardii 250 mg capsule (Daily Probiotic (S. boulardii)) 250 mg PO BID 10/25/21 [History Last Taken Unknown] dicyclomine 20 mg tablet 20 mg PO TID PRN abdominal pain #20 tabs 09/09/23 [Rx Last Taken Unknown] ondansetron 4 mg disintegrating tablet 4 mg PO Q8H PRN PRN Nausea #14 tabs 09/09/23 [Rx Last Taken Unknown] Allergy/AdvReac Type Severity Reaction Status Date / Time amoxicillin Allergy Hives Verified 09/09/23 18:49 morphine Allergy Hives Verified 09/09/23 18:49 Family History Grandmother Hypertension Grandfather Hypertension Heart disease Diabetes Kidney disease Surgical History S/P S/P tonsillectomy and adenoidectomy S/P wisdom tooth extraction Social History household members: family housing: house Smoking Status: Never smoker alcohol intake: current details: occasionally substance use type: does not use caffeine: Yes what type of physical activity do you participate in: walking, aerobics and weight training frequency: 5-6 times per week seatbelt use: always do you feel safe at home: Yes additional social history: ROS ROS ED Constitutional Constitutional ED: Denies chills, fever(s) or sweats Eyes Eyes: Denies blurry vision or change in vision ENT ENT ED: Denies ear pain or sore throat Cardiovascular Cardiovascular: Denies chest pain, palpitations or racing heartbeat Respiratory/Chest Respiratory/Chest: Denies cough, dyspnea or sputum Gastrointestinal Gastrointestinal: Reports abdominal pain, diarrhea and nausea; Denies constipation or vomiting Genitourinary Genitourinary ED: Denies dysuria, hematuria or urinary frequency Musculoskeletal Musculoskeletal: Denies arthralgias, myalgias or neck pain Integumentary Denies abscess, Abrasions or rash Neurologic Neurologic: Denies headache(s), paresthesias or weakness Psychiatric Psychiatric: Denies anxiety, depression, suicidal ideation or suicidal thoughts Endocrine Endocrinology: Denies polydipsia or polyuria EXAM Physical Exam Const Vital Signs: 09/09/23 18:48 Temperature 98.1 F Temperature Source Temporal Pulse Rate 68 Respiratory Rate 16 Blood Pressure 123/103 H Blood Pressure Mean 109 Pulse Ox 98 Oxygen Delivery Method Room Air Negative for well nourished General Appearance ED: NAD; Negative for pallor HEENT Reports moist mucous membranes normocephalic and atraumatic Eyes PERRL and EOMs intact bilaterally Resp normal respiratory effort Effort and Inspection: Negative for respiratory distress Cardio regular rate and regular rhythm GI GI Narrative: Mild epigastric tenderness. No rebound or guarding. No Alcocer sign or McBurney point tenderness. No peritoneal signs. Back/Spine no CVA tenderness Neuro CN's II-XII intact bilaterally Sensorium / Orientation: alert Motor Exam: strength 5/5 throughout Psych mental status grossly normal Skin no wounds General Skin Exam: Negative for jaundice or pallor MDM MDM MDM Narrative Medical decision making narrative: 38-year-old female presenting with abdominal pain. It is cramping in nature. Differential includes gastritis, IBS flare. Patient's abdominal exam is benign. CBC and CMP were obtained to assess white blood cell count, hemoglobin, platelets, renal function, electrolytes, liver function all this is normal. hCG negative. Urinalysis negative. Patient treated with Bentyl, Zofran, Toradol and on reevaluation her pain improved significantly and she feels better. Given this I do not believe she needs any imaging or further blood work. She is given a prescription for Bentyl and Zofran for home. She is counseled take Tylenol and ibuprofen. She was given a list of foods to avoid. Impression: 1. Abdominal pain 2. Nausea 3. History of IBS Lab Data Attestation: I reviewed the patient's lab results. Labs: Laboratory Results - last 24 hr 09/09/23 09/09/23 19:54 20:29 WBC 9.0 RBC 5.08 Hgb 15.0 Hct 45.5 MCV 89.6 MCH 29.5 MCHC 33.0 RDW Std Deviation 39.5 RDW Coeff of Barrett 12.0 Plt Count 185 MPV 11.7 Immature Gran % (Auto) 0.400 Neut % (Auto) 85.6 H Lymph % (Auto) 12.7 L [place] % (Auto) 1.1 Eos % (Auto) 0.0 Baso % (Auto) 0.2 Absolute Neuts (auto) 7.7 Absolute Lymphs (auto) 1.14 Nucleated RBC % 0 Sodium 138 Potassium 4.1 Chloride 104 Carbon Dioxide 28.0 Anion Gap 6 BUN 12 Creatinine 0.87 Estim Creat Clear Calc 74.97 Est GFR (MDRD) Af Amer 93 Est GFR (MDRD) Non-Af 77 BUN/Creatinine Ratio 13.8 Glucose 112 H Calcium 9.5 Total Bilirubin 0.80 AST 10 L ALT 18 Alkaline Phosphatase 62 Total Protein 7.6 Albumin 3.9 Globulin 3.7 Albumin/Globulin Ratio 1.1 Serum , Qual NEGATIVE Urine Color Yellow Urine Clarity Sl. Cloudy Urine pH 7.0 Ur Specific Beverly 1.010 Urine Protein Negative Urine Glucose (UA) Normal Urine Ketones 15 H Urine Occult Blood Negative Urine Nitrite Negative Urine Bilirubin Negative Urine Urobilinogen Normal Ur Leukocyte Esterase Negative Urine RBC 0 SEEN Urine WBC 0 SEEN Ur Squamous Epith Cells 0 SEEN Urine Bacteria 0 SEEN Urine Mucus 0 SEEN Discharge Plan Triage Chief Complaint: Abd Pain ED Provider: Bartolome Whalen Dx/Rx/DC Orders Instructions: ED Abdominal Pain Unkn Cause Fem Prescriptions: New ondansetron 4 mg tablet,disintegrating 4 mg PO Q8H PRN PRN (Reason: Nausea) Qty: 14 0RF dicyclomine 20 mg tablet 20 mg PO TID PRN (Reason: abdominal pain) Qty: 20 0RF No Action multivitamin Tablet 1 tab PO DAILY Excedrin Extra Strength 250-250-65 mg tablet 1 tab PO ONCE Saccharomyces boulardii [Daily Probiotic (S. boulardii)] 250 mg capsule 250 mg PO BID Primary Care Provider: Jhonathan Montgomery Referrals: Jhonathan Montgomery MD [Primary Care Provider] - Disposition Disposition: Home, Self Care
[2023-09-10 00:06] VITALS: RESP 16
== END 2023-09-10 00:07 | disposition home or self-care (01) ==
PROVIDERS: Emergency Provider Student in an Organized Health Care Education/Training Program; PCP Family Medicine; Visit Provider Student in an Organized Health Care Education/Training Program
DX: R10.9 Unspecified abdominal pain (principal); R11.0 Nausea; Z87.19 Personal history of other diseases of the digestive system
CPT/HCPCS: 80053; 81001; 84703; 85025; 96372; 96374; 96375; 99284; A4216; J2405

== ENCOUNTER → 2023-09-10 | Outpatient (CLI) | payer BC, SELFPAY ==
--- NOTE | 2023-09-10 15:56 | RAD_ITS ---
STUDY: X-RAY - ABDOMEN/PELVIS REASON FOR EXAM: Female, 38 years old. Abdominal pain. TECHNIQUE: AP supine and upright views of the abdomen and pelvis. COMPARISON: September 10, 2020 FINDINGS: Normal visualized lung bases. Normal bowel gas pattern. Moderate amount of feces in the colon.. The visualized liver, spleen and kidneys are grossly normal in size and morphology. Normal soft tissue structures. Normal visualized osseous structures. RAD/Abd Inc Decub and/or Erect IMPRESSION: No acute abnormality of the lower chest, abdomen or pelvis. Electronically Signed: Blaise Donovan MD at 9:53 EST ,
== END | disposition home or self-care (01) ==
LOC: MTRAD 15:56
PROVIDERS: PCP Family Medicine; Referring Provider Family Medicine; Visit Provider Family Medicine
DX: R52 Pain, unspecified (principal)
CPT/HCPCS: 74019

== ENCOUNTER → 2023-11-23 | Outpatient (CLI) | payer BC, SELFPAY ==
[2023-11-23 17:43] LABS: Absolute Lymphocyte Count 2.48 X10^3/uL (0.83-4.51); Absolute Neutrophil Count 5.7 X10^3/uL (2.0-7.7); Basophil# 0.03 X10^3/uL; Basophil% 0.3 % (0-1); Eosinophil# 0.11 X10^3/uL; Eosinophils% 1.3 % (0-5); Hematocrit 45.1 % (37-47); Hemoglobin 14.7 g/dL (12.0-15.0); Lymphocyte # 2.48 X10^3/ul (0.83-4.51); Lymphocyte % 28.6 % (19-41); Mean Corp Hgb Conc 32.6 g/dL (32-36); Mean Corpuscular Hgb 29.7 pg (27.0-32.0); Mean Corpuscular Volume 91.1 fL (81-99); Mean Platelet Vol. 12.5 fl (6.2-12.0); Monocyte# 0.39 X10^3/uL; Monocyte% 4.5 % (0-10); NRBC Flagged by Analyzer 0 % (0-5); Neutrophil # 5.65 X10^3/uL (2.7-7.7); Neutrophil % 65.1 % (47-70); Platelet Count 191 K/mm3 (150-450); RBC Distribution Width CV 12.1 % (11.6-14.6); RBC Distribution Width SD 40.1 fl (35.1-43.9); Red Blood Count 4.95 M/mm3 (4.2-5.4); White Blood Count 8.7 K/mm3 (4.4-11.0)
[2023-11-23 18:00] LABS: ALB/GLOB Ratio 1.3 RATIO (0.9-2.4); AST(SGOT) 14 U/L (15-37); Alanine Aminotransfer ALT/SGPT 19 U/L (13-56); Albumin, Serum 4.4 g/dL (3.2-5.0); Alkaline Phosphatase 76 U/L (45-117); Anion Gap 6 (5-15); BUN 9 mg/dL (7-18); BUN/Creat Ratio 13.5 RATIO (10-20); Calcium,Total 9.3 mg/dL (8.5-10.1); Chloride 104 mmol/L (98-107); Creatinine, Serum 0.66 mg/dL (0.55-1.02); EST Glomerular Filtration Rate 105 mL/min (>60); Est Glom Filt Rate - Afr Amer 127 mL/min (>60); Ferritin 120 ng/mL (8-252); Globulin 3.3 g/dL (2.2-4.2); Glucose 75 mg/dL (74-106); Iron 101 ug/dL (50-170); Iron Binding Capacity,Total 340 ug/dL (250-450); Potassium 3.7 mmol/L (3.5-5.1); Protein, Total 7.7 g/dL (6.4-8.2); Sodium Level 139 mmol/L (136-145)
== END | disposition home or self-care (01) ==
LOC: MTLAB 14:36
PROVIDERS: PCP Family Medicine; Referring Provider Family Medicine; Visit Provider Family Medicine
DX: R42 Dizziness and giddiness (principal); E61.1 Iron deficiency
CPT/HCPCS: 36415; 80053; 82728; 83540; 83550; 85025

== ENCOUNTER → 2024-09-11 | Outpatient (CLI) | payer BC, SELFPAY ==
--- NOTE | 2024-09-11 11:04 | BI_ITS ---
MAMMOGRAPHY - BILATERAL SCREENING REASON FOR EXAM: Female, 39 years old. Routine annual screening examination. PERTINENT HISTORY: Non-contributory. TECHNIQUE: Digital bilateral breast christi (3D mammographic acquisition) in the CC and MLO projections. 2-D mediolateral oblique (MLO) and craniocaudad (CC) views of both breasts were obtained. CAD: Full Field Digital Mammography with Computer Added Detection was performed. COMPARISON: None. Baseline examination. FINDINGS: Breast Composition: The breasts are extremely dense, which lowers the sensitivity of mammography. There are no dominant masses or suspicious calcifications. Small benign-appearing bilateral axillary lymph nodes. No other significant abnormalities are identified. There has been no significant change since the prior study. BI/SCRN MAMM (CAD)W/CHRISTI BILAT IMPRESSION: Stable bilateral screening mammogram. Yearly follow-up mammogram recommended. (A) ASSESSMENT CATEGORY: BIRADS Category 2: Benign. A letter regarding these results will be sent to the patient by the facility within 30 days. Approximately 10% of breast cancers are not detected by mammography. A normal mammogram should not delay biopsy of a clinically suspicious abnormality. [id number] Electronically Signed: Clifton Mazariegos MD at 12:44 EST ,
== END | disposition home or self-care (01) ==
LOC: OPBI 11:01
PROVIDERS: PCP Family Medicine; Referring Provider Advanced Practice Midwife; Visit Provider Advanced Practice Midwife
DX: Z12.31 Encounter for screening mammogram for malignant neoplasm of breast (principal)
CPT/HCPCS: 77063; 77067

== ENCOUNTER → 2024-11-28 | Outpatient (CLI) | payer BC, SELFPAY | END | disposition home or self-care (01) | LOC: LABSPEC 10:24 | PROVIDERS: PCP Family Medicine; Referring Provider Advanced Practice Midwife; Visit Provider Advanced Practice Midwife | DX: N89.8 Other specified noninflammatory disorders of vagina (principal) | CPT/HCPCS: 87070; 87205 ==

== ENCOUNTER → 2024-12-05 | Outpatient (CLI) | payer BC, SELFPAY | END | disposition home or self-care (01) | LOC: LABSPEC 17:57 | PROVIDERS: PCP Family Medicine; Visit Provider Physician Assistant Surgical | DX: R33.0 Drug induced retention of urine (principal) | CPT/HCPCS: 87086 ==

== ENCOUNTER → 2025-09-21 | Outpatient (CLI) | payer BC, SELFPAY ==
--- NOTE | 2025-09-21 12:45 | BI_ITS ---
EXAM: SCRN MAMM (CAD)W/CHRISTI BILAT DATE: 09/21/2025 CLINICAL HISTORY: F, Age 40 y/o , BREAST CANCER SCREENING TECHNIQUE: Procedure Code: [id number] Modality: MG Procedure: SCRN MAMM (CAD)W/CHRISTI BILAT COMPARISON: Prior exam(s) dated 09/11/2024. FINDINGS: TISSUE DENSITY: The breasts are extremely dense, which lowers the sensitivity of mammography. Bilateral Breast Mammographic Findings: Benign round microcalcifications are seen in both breasts. No suspicious masses, suspicious clustered microcalcifications, architectural distortion or secondary signs of malignancy is identified in either breast. BI/SCRN MAMM (CAD)W/CHRISTI BILAT IMPRESSION: Benign screening mammogram. OVERALL FINAL ASSESSMENT BI-RADS 2: BENIGN RECOMMENDATION: Routine annual follow-up in 1 Year Additional Recommendation none A letter with findings and recommendations will be mailed to the patient. Reading Location: [id number]
== END | disposition home or self-care (01) ==
LOC: OPBI 12:37
PROVIDERS: PCP Family Medicine; Referring Provider Advanced Practice Midwife; Visit Provider Advanced Practice Midwife
DX: Z12.31 Encounter for screening mammogram for malignant neoplasm of breast (principal)
CPT/HCPCS: 77063; 77067